=== PATIENT | female | born 1995 | race Caucasian/White ===

== ENCOUNTER → 2021-06-12 | Emergency (ER) | payer OTHER ==
[~2021-06-12] MED LIST: COLACE 100MG C100 MG PO; FEOSOL325 MG PO; FOLIC ACID 1 MG1 MG PO; ZANTAC150 MG PO
== END | disposition home or self-care (01) ==
LOC: ER1 18:58
DX: O9A.211 Injury, poisoning and certain other consequences of external causes complicating pregnancy, first trimester (principal); R10.30 Lower abdominal pain, unspecified; M54.50 Low back pain, unspecified; Z3A.13 13 weeks gestation of pregnancy; F17.200 Nicotine dependence, unspecified, uncomplicated
CPT/HCPCS: 76815; 81001; 87086; 99285

== ENCOUNTER → 2021-08-02 | Outpatient (CLI) | payer OTHER | LOC: GENOP 20:14 | DX: O36.8120 Decreased fetal movements, second trimester, not applicable or unspecified (principal); O47.02 False labor before 37 completed weeks of gestation, second trimester; Z3A.21 21 weeks gestation of pregnancy | CPT/HCPCS: G0463 ==

== ENCOUNTER → 2021-09-02 | Outpatient (CLI) | payer OTHER | LOC: GENOP 19:39 | DX: O99.891 Other specified diseases and conditions complicating pregnancy (principal); R10.9 Unspecified abdominal pain; M54.9 Dorsalgia, unspecified; Z3A.26 26 weeks gestation of pregnancy | CPT/HCPCS: 81001; G0463 ==

== ENCOUNTER 2021-09-09 21:13 | Outpatient (CLI) | payer OTHER | END 2021-09-09 22:45 | disposition home or self-care (01) | LOC: GENOP 21:13 | DX: O99.891 Other specified diseases and conditions complicating pregnancy (principal); R10.9 Unspecified abdominal pain; Z3A.25 25 weeks gestation of pregnancy | CPT/HCPCS: 81001; G0463 ==

== ENCOUNTER 2021-10-04 19:52 | Outpatient (CLI) | payer OTHER | END 2021-10-04 22:30 | disposition home or self-care (01) | LOC: GENOP 19:52 | DX: Z53.9 Procedure and treatment not carried out, unspecified reason (principal) | CPT/HCPCS: 81001; 82731; G0463 ==

== ENCOUNTER → 2021-10-17 | Outpatient (CLI) | payer OTHER | LOC: GENOP 23:02 | DX: O47.1 False labor at or after 37 completed weeks of gestation (principal); Z3A.33 33 weeks gestation of pregnancy | CPT/HCPCS: 81001 ==

== ENCOUNTER 2021-10-19 14:54 | Outpatient (CLI) | payer OTHER | END 2021-10-19 17:38 | disposition home or self-care (01) | LOC: GENOP 14:54 | DX: O99.891 Other specified diseases and conditions complicating pregnancy (principal); N89.8 Other specified noninflammatory disorders of vagina; R10.30 Lower abdominal pain, unspecified; O99.333 Smoking (tobacco) complicating pregnancy, third trimester; F17.210 Nicotine dependence, cigarettes, uncomplicated; M54.50 Low back pain, unspecified; Z3A.32 32 weeks gestation of pregnancy | CPT/HCPCS: 81001; 82731; G0463 ==

== ENCOUNTER 2021-10-25 00:08 | Outpatient (CLI) | payer OTHER | END 2021-10-25 01:30 | disposition home or self-care (01) | LOC: GENOP 00:08 | DX: O36.8120 Decreased fetal movements, second trimester, not applicable or unspecified (principal); O99.891 Other specified diseases and conditions complicating pregnancy; Z3A.26 26 weeks gestation of pregnancy | CPT/HCPCS: 81001; G0463 ==

== ENCOUNTER 2021-10-31 23:32 | Outpatient (CLI) | payer OTHER | END 2021-11-01 11:25 | disposition left against medical advice (07) | LOC: GENOP 23:32 | DX: O36.8130 Decreased fetal movements, third trimester, not applicable or unspecified (principal); O47.03 False labor before 37 completed weeks of gestation, third trimester; Z3A.34 34 weeks gestation of pregnancy | CPT/HCPCS: 81001; 82731; 84112 ==